=== PATIENT | male | born 1960 | race Caucasian/White ===

== ENCOUNTER 2025-01-08 11:51 | Emergency (ER) | payer OTHER, BC, SELFPAY ==
--- NOTE | ~2025-01-08 | CT_ITS ---
CT HEAD NON-CONTRAST CT C-SPINE Clinical History: fall with neck pain, h/o fusion Comparison: None Technique: Unenhanced axial images skull base to vertex. Coronal, sagittal reformats. Axial images thoracic inlet to skull base. Sagittal and coronal reformats. CT images acquired with automatic exposure control for dose reduction DLP: 605 mGy-cm Findings: Head: Sulci, ventricles: Unremarkable. No intracerebral hemorrhage. No evidence acute territorial infarct. No mass effect, midline shift, intra-/extra-axial fluid collection. Bony calvarium intact. Visualized paranasal sinuses: Clear. Mastoid air cells: Clear. C-spine: ACDF and fusion C3-7 No acute fracture or listhesis. Vertebral bodies normal height and alignment. Moderate degenerative changes. Prevertebral soft tissues within normal limits. Visualized lung apices: Clear. Visualized thyroid: Unremarkable. No enlarged cervical nodes. IMPRESSION: HEAD: 1. No acute intracranial findings. C-SPINE: 1. No acute fracture. Reviewed, dictated and finalized at location R. ER MERCHANDISER IMPRESSION: HEAD: 1. No acute intracranial findings. C-SPINE: 1. No acute fracture.
[2025-01-08 12:11] VITALS: BP 113/76; PULSE 73; RESP 14; TEMP 36.7; O2SAT 97
--- OUTSIDE RECORDS SUMMARY | 2025-01-08 13:39 | XMS_ITS | Clinical Summary ---
Author Organization [facility] Address [address] [place] [address] Care Team Providers Care Production Broacher Name Role Phone Sae Ocampo MD Primary Care Provider [phone] Allergies No known active allergies Medications Fluticasone Propionate (FLONASE NA) Active LORAZEPAM PO Active albuterol (ProAir HFA) 108 (90 Base) MCG/ACT inhalerIndication s:Mild intermittent asthma, unspecified whether complicated (CMD) Inhale 2 puffs into the lungs four times daily. 1 each 2 Active clopidogrel (PLAVIX) 75 MG tablet Take 75 mg by mouth daily. 1 Active irbesartan-hydroc hlorothiazide (AVALIDE) 150-12.5 MG per tablet Take 1 tablet by mouth daily. 1 Active dexmethylpheniDAT E (FOCALIN XR) 30 MG 24 hr capsule Take 30 mg by mouth every morning. 3 Active dexmethylphenidat e (FOCALIN) 10 MG tablet TAKE 1 TABLET (10 MG) BY ORAL ROUTE 2 TIMES PER DAY AT LEAST 4 HOURS APART FOR 30 DAYS 3 Active [place]-3 Fatty Acids (Fish Oil) 1200 MG CAPSULE DELAYED RELEASE Take by mouth every 12 hours. Active albuterol (ProAir HFA) 108 (90 Base) MCG/ACT inhaler every 6 hours. Activ e budesonide-formot michael (Symbicort) 160-4.5 MCG/ACT inhaler every 12 hours. Active rosuvastatin (CRESTOR) 20 MG tablet TAKE 1 TABLET BY MOUTH EVERY DAY FOR 90 DAYS 3 Active carvedilol (COREG CR) 20 MG 24 hr capsule daily. Active Cetirizine HCl (ZyrTEC Allergy) 10 MG Cap Active methylPREDNISolon e (MEDROL DOSEPAK) 4 MG tabletIndications :Acute recurrent pansinusitis follow package directions 1 packet 3 Active azelastine (ASTELIN) 0.1 % nasal sprayIndications: Acute recurrent pansinusitis [place] 1-2 sprays in each nostril 2 times daily as needed for Rhinitis. Use in each nostril as directed 1 each 3 Active Active Problems Problem Noted Date Diagnosed Date Asthma without status asthmaticus (CMD) 06/18/1906/17/2022 Overview (06/17/2022): Asthma, unspecified asthma severity, unspecified whether complicated, unspecified whether persistent Atherosclerosis of coronary artery without angin a pectoris 06/17/2022 06/17/2022 Overview (06/17/2022): Coronary artery disease involving [place] heart without angina pectoris, unspecified vessel or lesion type Essential hypertension 06/17/2022 3 Overview (06/17/2022): Hypertension, unspecified type Fatty liver 06/17/2022 06/17/2022 Mixed hyperlipidemia 06/17/2022 06/17/2022 Other chronic pain 06/17/2022 06/17/2022 Vitamin D deficiency 06/17/2022 06/17/2022 Immunizations Immunization Administration Dates Next Due Encephalitis Italian 02/25/2015,02/04/2015 Hep A, Unspecified formulation 4,06/29/2012,06/19/2012,2012 Hep B, adult 06/13/2013, 3,06/19/2012,2012 Hepatitis A - Adult 06/13/2013, 3,06/19/2012,2012 IPV 06/12/2012 Influenza, split virus, quad rivalent, PF 01/21/2019 Influenza, split virus, trivalent 02/04/2015 Influenza, split virus, trivalent, PF 02/04/2015 Influenza, unspecified formulation 01/30/2012 Italian Encephalitis SQ 02/25/2015,02/04/2015 MMR 01/25/2015 Tdap 08/24/2024,05/16/2016,06/12/2012 Surgical History Surgery Date Site/Laterality Comments CORONARY STENT PLACEMENT APPENDECTOMY SPINE SURGERY TONSILLECTOMY Medical History Medical History Date Comments Essential (primary) hypertension Hyperlipidemia ADD (attention deficit disorder) RAD (reactive airway disease) (CMD) Social History Tobacco Use Types Packs/Day Years Used Date Smoking Tobacco: Never Smokeless Tobacco: Never Tobacco Cessation:Counseling Given: Not Answered Inadequate Housing Answer Date Recorded Social Determinants: Housing (Overall Score Help er) 0 09/18/2018 Sex and Gender Information Value Date Recorded Sex Assigned at Not on file Legal Sex Male 2:18 PM CDT Gender Identity Not on file Sexual Orientation Not on file Obstetrics History Last Filed Vital Signs Vital Sign Reading Time Taken Comments Blood Pressure 131/76 08/24/2024 5:01 PM CDT Pulse 64 08/24/2024 5:01 PM CDT Temperature 36.8 C (98.2 F) 08/24/2024 3:03 PM CDT Respiratory Rate 17 08/24/2024 5:01 PM CDT Oxygen Saturation 95% 08/24/2024 5:01 PM CDT Inhaled Oxygen Concentration - - Weight 120 kg (264 lb 8.8 oz) 08/24/2024 3:02 PM CDT Height 185.4 cm (6' 1) 05/20/2022 2:34 PM CDT Body Mass Index 34.9 05/20/2022 2:34 PM CDT Plan of Treatment Health Maintenance Due Date Last Done Comments Depression Screening 1973 Pneumococcal Vaccine 50+ (1 of 2 - PCV) 1980 CT Colonography 2006 Cologuard 2006 Colonoscopy 2006 Colorectal Cancer Screening 2006 Fecal Occult Blood 2006 Sigmoidoscopy 2006 Respiratory Syncytial Virus (RSV) Vaccine 50+ (1 - Risk 50-74 years 1-dose series) 11/30/2011 Shingles Vaccine (1 of 2) 11/30/2011 Hepatitis C Screening 2012 Hepatitis B Vaccine (3 of 3 - 19+ 3-dose series) 08/08/2013 06/13/2013, 06/29/2012, 06/19/2012, Additional history exists COVID-19 Vaccine (2024- season) 2024 08/22/2020, 08/01/2020, 07/22/2020, Additional history exists Influenza Vaccine (#1) 2024 9, 02/04/2015, 02/04/2015, Additional history exists DTaP/Tdap/Td Vaccine (4 - Td or Tdap) 08/24/2034 08/24/2024, 05/16/2016, 06/12/2012 Hepatitis A Vaccine Aged Out 06/13/2013, 06/13/2013, 06/29/2012, Additional history exists No longer eligible based on patient's age to complete this topic Meningococcal Serogroup B Vaccine Aged Out No longer eligible based on patient's age to complete this topic Insurance [facility] UNKNOWN Care Teams Production Broacher Relationship Specialty Start Date End Date Sae Ocampo MD PCP - General 10/22/18
--- OUTSIDE RECORDS SUMMARY | 2025-01-08 13:39 | XMS_ITS | Clinical Summary ---
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
--- OUTSIDE RECORDS SUMMARY | 2025-01-08 13:39 | XMS_ITS | Clinical Summary ---
Author Organization [facility] Address [address] [facility], [address] [place] [address] Phone Care Team Providers Care International Accountant Name Role Phone Sae Ocampo MD Primary Care Provider [phone] Allergies No known active allergies Medications carvedilol CR (Coreg CR) 20 MG 24 hr capsule Take 20 mg by mouth in the morning. with food 3 Active clopidogrel (Plavix) 75 MG tablet 3 Active Jornay PM 100 MG capsule sustained-relea se 24 hr 3 Active rosuvastatin (Crestor) 20 MG tablet 3 Active irbesartan-hydr oCHLOROthiazide (Avalide) 150-12.5 MG tablet Take 1 tablet by mouth in the morning. 3 Active LORazepam (Ativan) 1 MG tablet Take 1 mg by mouth if needed at bedtime. 3 Active dexmethylphenid ate (Focalin) 10 MG tablet TAKE 1 TABLET (10 MG) BY ORAL ROUTE 2 TIMES PER DAY AT LEAST 4 HOURS APART FOR 30 DAYS 3 Active methylPREDNISol one (Medrol Dospak) 4 MG tabletsIndicati ons:Prepatellar bursitis of left knee Use as directed by package instructions 1 tablet 3 Active Additional Information Patient not taking.Reported on 09/06/2022 Active Problems Problem Noted Date Diagnosed Date Abrasion AND/OR friction burn of finger without infection 07/15/2022 Abrasion of right hand 07/15/2022 Abrasion of right index finger 07/15/2022 Abrasion of right middle finger 07/15/2022 Abrasion of right ring finger 07/15/2022 Degeneration of cervical intervertebral disc 09/2022 Displacement of cervical int ervertebral disc without myelopathy 07/15/2022 Asthma without status asthmaticus 06/17/2022 Overview (07/15/2022): Asthma, unspecified asthma severity, unspecified whether complicated, unspecified whether persistent Atherosclerosis of coronary artery without angin a pectoris 06/17/2022 Overview (07/15/2022): Coronary artery disease involving [place] heart without angina pectoris, unspecified vessel or lesion type Essential hypertension 06/17/2022 Overview (07/15/2022): Hypertension, unspecified type Fatty liver 06/17/2022 Mixed hyperlipidemia 06/17/2022 Vitamin D deficiency 06/17/2022 Other chronic pain 06/17/2022 Immunizations Immunization Administration Dates Next Due Hep A, Unspecified 06/13/2013, 3,06/19/2012,2012 Hep B, adult 06/13/2013, 3,06/19/2012,2012 IPV 06/12/2012 Influenza, High-dose Seasona l, Quadrivalent, Preservative Free 01/21/2019 Influenza, Unspecified 01/30/2012 Influenza, seasonal, injectable 02/04/2015 [place] Encephalitis IM 02/25/2015,02/04/2015 MMR 01/25/2015 Tdap 05/16/2016,06/12/2012 Family History Medical History Relation Name Comments Heart attack Father Heart disease Father Hyperlipidemia Father Hypertension Father Kidney disease Father Sleep apnea Father Stroke Father Relation Name Status Comments Father Social History Tobacco Use Types Packs/Day Years Used Date Smoking Tobacco: Never Smokeless Tobacco: Never Tobacco Cessation:Counseling Given: Not Answered Alcohol Use Standard Drinks/Week Comments Not Currently 0 (1 standard drink = 0.6 oz pur e alcohol) Sex and Gender Information Value Date Recorded Sex Assigned at Not on file Legal Sex Male 8:52 PM CDT Gender Identity Not on file Sexual Orientation Not on file Last Filed Vital Signs Vital Sign Reading Time Taken Comments Blood Pressure - - Pulse - - Temperature - - Respiratory Rate - - Oxygen Saturation - - Inhaled Oxygen Concentration - - Weight 109 kg (240 lb) 09/06/2022 4:35 PM CDT Height 185.4 cm (6' 1) 09/06/2022 4:35 PM CDT Body Mass Index 31.66 09/06/2022 4:35 PM CDT Plan of Treatment Health Maintenance Due Date Last Done Comments Influenza Vaccine (#1) 2024 02/04/2015, 2011 Insurance [facility] Care Teams International Accountant Relationship Specialty Start Date End Date Sae Ocampo MD [address] [place] [address] PCP - General Psychiatry 07/15/22
--- OUTSIDE RECORDS SUMMARY | 2025-01-08 13:39 | XMS_ITS | Clinical Summary ---
Author Organization [facility] Address [address] [place] [address] Care Team Providers Care Railroad Police Officer Name Role Phone Sae Ocampo MD Primary Care Provider [phone] Allergies No known active allergies Medications aspirin 325 MG tablet Take 325 mg by mouth daily. Active rosuvastatin (CRESTOR) 20 MG tablet Take 1 tablet by mouth. Active irbesartan-hydroc hlorothiazide (AVALIDE) 150-12.5 mg per tablet Take 1 tablet by mouth. 04/16/19 21 Active Jornay PM 100 mg CDES Take 1 capsule by mouth nightly. 07/15/19 23 Active budesonide-formot [place] (SYMBICORT) 160-4.5 mcg/actuation inhaler every 12 (twelve) hours. 01/01/20 23 Active LORazepam (ATIVAN) 1 MG tablet TAKE 1 AND 1/2 TABLETS AT BEDTIME Active orphenadrine (NORFLEX) 100 mg tabletIndications :Pain in right lumbar region of back,Spasm of muscle of lower back Take 1 tablet (100 mg total) by mouth 2 (two) times a day. 20 tablet 11/12/19 24 Active predniSONE (DELTASONE) 10 MG tabletIndications :Pain in right lumbar region of back,Lumbar back pain with radiculopathy affecting right lower extremity Take 4 tablets by mouth for 3 days, Take 3 tablets by mouth for 3 days, Take 2 tablet by mouth for 3 days, then 1 tablet daily for 3 days 30 tablet 11/12/19 24 Active carvedilol phosphate (Coreg CR) 20 MG 24 hr capsule Take one capsule with food daily. 90 capsule 1 08/01/19 25 Active clopidogreL (PLAVIX) 75 mg tablet TAKE 1 TABLET BY MOUTH EVERY DAY 90 tablet 12/20/19 25 Active clopidogreL (PLAVIX) 75 mg tablet Take 1 tablet (75 mg total) by mouth daily. 90 tablet 1 09/04/19 25 025 Discontinued Active Problems No known active problems Encounters Date Type Department Care Team Description 12/15/2024 Refill Cardiology [id number] [place] [address] Vadim Bolaños MD Medication Refill from Last 3 Months Immunizations Immunization Administration Dates Next Due Hepatitis A (HAVRIX/VAQTA) 06/13/2013,,06/19/2012,2012 Hepatitis B (ENGERIX-B/RECOMBIVAX) 06/13,06/29/2012,06/19/2012,2012 Influenza Split High Dose Quadrivalent (IM) PF (FLUZONE) 01/21/2019 Influenza Trivalent (IM) PF 02/04/2015 Influenza Trivalent w/Preser vative (IM) 02/04/2015 Influenza, Unspecified 01/30/2012 [place] Encephalitis 02/25/2015,02/04/2015 MMR 01/25/2015 POLIOVIRUS/IPV (POLIOVAX) 06/12/2012 [facility] SARS-COVID Vaccine Ag es 12+ (With Diluent) 07/12/2020 Tdap (ADACEL/BOOSTRIX) 05/16/2016,06/12/2012 Social History Tobacco Use Types Packs/Day Years Used Date Smoking Tobacco: Never Smokeless Tobacco: Never Tobacco Cessation:Counseling Given: Not Answered Interpersonal Safety Answer Date Record ed Do you feel physically or em otionally unsafe where you currently live? 2 11/12/2023 Is there someone in your lif e who physically hurts, threatens, humiliates, or scares you? 2 11/12/2023 Is anyone misusing your hitesh y, food, housing, and/or not allowing you to get medical treatment? 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 Gender Identity Not on file Sexual Orientation Not on file Last Filed Vital Signs Vital Sign Reading Time Taken Comments Blood Pressure 122/77 11/12/2023 11:45 AM CDT Pulse 72 11/12/2023 11:45 AM CDT Temperature 36.9 C (98.4 F) 11/12/2023 11:45 AM CDT Respiratory Rate 18 11/12/2023 11:45 AM CDT Oxygen Saturation 98% 11/12/2023 11:45 AM CDT Inhaled Oxygen Concentration - - Weight 113 kg (250 lb) 11/12/2023 11:45 AM CDT Height 185.4 cm (6' 1) 11/12/2023 11:45 AM CDT Body Mass Index 32.98 11/12/2023 11:45 AM CDT Plan of Treatment Health Maintenance Due Date Last Done Comments Annual Wellness Exam with PCP (Rolling Yr) 1961 CT Colonography 1961 Colonoscopy 1961 Colorectal Cancer Screening 1961 FIT / gFOBT Colorectal Cancer Screening 1961 FIT-DNA (Cologuard) 1961 Flexible Sigmoidoscopy 1961 Hepatitis C Screening 11/30/1979 Pneumococcal Vaccine: 50+ Years (1 of 2 - PCV) 1980 Zoster Vaccine (Shingles) (1 of 2) 11/30/2011 Hepatitis B Vaccines (3 of 3 - Risk 3-dose series) 08/08/2013 06/13/2013, 06/29/2012, 06/19/2012, Additional history exists Influenza Vaccine (#1) 2024 9, 02/04/2015, 02/04/2015, Additional history exists COVID-19 Vaccine ( - 2024- season) 2024 08/22/2020, 08/01/2020, 07/12/2020 DTaP,Tdap,and Td Vaccines (4 - Td or Tdap) 08/24/2034 08/24/2024, 05/16/2016, 06/12/2012 Hepatitis A Vaccines Completed 06/13/2013, 06/29/2012, 06/19/2012, Additional history exists Meningococcal Vaccine Aged Out No joceline chris eligible based on patient's age to complete this topic Care Teams Railroad Police Officer Relationship Specialty Start Date End Date Sae Ocampo MD [address] [place] [id number] PCP - General 01/09/21
--- OUTSIDE RECORDS SUMMARY | 2025-01-08 13:39 | XMS_ITS | Encounter Summary ---
Author Organization [facility] Address [address] 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 M CHEESE MAKER documented in this encounter Plan of Treatment Not on file documented as of this encounter Visit Diagnoses Not on filedocumented in this encounter Additional Health Concerns Assessment Noted Time A fall risk assessment has been complete d for the patient 11/12/2023 11:41 AM CDT A Body Mass Index follow-up plan has been documented for the patient 11/12/2023 12:10 PM CDT documented as of this encounter Care Teams Health Administration Teacher Relationship Specialty Start Date End Date Sae Ocampo MD [address] [place] [id number] PCP - General 01/09/21 documented as of this encounter
--- OUTSIDE RECORDS SUMMARY | 2025-01-08 13:39 | XMS_ITS | Encounter Summary ---
Author Organization [facility] Address [address] [place] [address] Care Team Providers Care Labor Mediator Name Role Phone Sae Ocampo MD Primary Care Provider Encounter Details Date Type Department Care Team (Late st Contact Info) Description 08/04/2021 E-Advice [facility], [place] [address] [facility] [address] [place] [address] Ifeanyi Guardado PA-C [address] [facility] [address] [place] [address] Return to Work Letter Social History Tobacco Use Types Packs/Day Years Used Date Smoking Tobacco: Never Smokeless Tobacco: Never Inadequate Housing Answer Date Recorded Social Determinants: Housing (Overall Score Help er) 0 09/18/2018 Sex and Gender Information Value Date Recorded Sex Assigned at Not on file Legal Sex Male 2:18 PM CDT Gender Identity Not on file Sexual Orientation Not on file documented as of this encounter Plan of Treatment Not on file documented as of this encounter Visit Diagnoses Not on filedocumented in this encounter Care Teams Labor Mediator Relationship Specialty Start Date End Date Sae Ocampo MD PCP - General 10/22/18 documented as of this encounter
[2025-01-08 13:40] VITALS: BP 120/68; PULSE 80; RESP 14; TEMP 36.6; O2SAT 99
--- NOTE | 2025-01-08 16:34 | ED.FALL ---
HPI - Fall General Chief Complaint: Fall Stated Complaint: fall on ice at 0600 today Time Seen by Provider: 01/08/25 12:21 History of Present Illness HPI Narrative: Patient has history cervical fusion, he is here for work and slipped on ice, and fell back, did not hit his head but he does have pain to his neck, he thinks he may be from whiplash. Is on blood thinners. No focal numbness or weakness, ambulating without issues. Related Data Allergies Allergy/AdvReac Type Severity Reaction Status Date / Time No Known Allergies Allergy Verified 01/08/25 12:14 Review of Systems Review of Systems: All systems reviewed & are unremarkable except as noted in HPI and below Exam Narrative: EXAMINATION OF ORGAN SYSTEMS/BODY AREAS: Constitutional: Vital signs per nursing GENERAL:[No acute distress, non-toxic appearing.] HEAD: Normal with no signs of head trauma. EYES: EOMI, conjunctiva normal ENT: Hearing grossly intact NECK: Some slight tenderness to the right-sided neck LUNGS: Nonlabored breathing. HEART: [Regular rate and rhythm] ABD: [Soft], [nontender to palpation] EXT: Normal range of motion, no midline tenderness down back SKIN: [No rashes or lesions.] NEURO: [Alert. No gross focal sensory or strength deficits.] PSYCH: Normal affect Course Vital Signs Vital signs: Vital Signs Temperature 98.1 F 01/08/25 12:11 Pulse Rate 73 01/08/25 12:11 Respiratory Rate 14 01/08/25 12:11 Blood Pressure 113/76 01/08/25 12:11 Pulse Oximetry 97 01/08/25 12:11 Oxygen Delivery Room Air 01/08/25 12:11 Temperature 98 F 01/08/25 13:40 Pulse Rate 80 01/08/25 13:40 Respiratory Rate 14 01/08/25 13:40 Blood Pressure 120/68 01/08/25 13:40 Pulse Oximetry 99 01/08/25 13:40 Oxygen Delivery Room Air 01/08/25 12:11 [facility] Narrative Medical decision making narrative: Patient presents here after slipping on ice and falling, with pain to his neck. He does not think he hit his head. He is on blood thinners. CT head and C-spine obtained here within acceptable limits, he is stable for discharge with follow-up to his doctor, prescriptions for pain medicine as needed Differential Diagnosis Differential Diagnosis: Fracture, sprain, whiplash, intracranial hemorrhage Imaging Data Radiologist's impression: ITS Impressions Cervical Spine CT 01/08/25 13:12 IMPRESSION: HEAD: 1. No acute intracranial findings. C-SPINE: 1. No acute fracture. Head CT 01/08/25 13:12 IMPRESSION: HEAD: 1. No acute intracranial findings. C-SPINE: 1. No acute fracture. Discharge Plan Discharge Clinical Impression: Fall, Neck pain Patient Disposition: Home Condition: Stable Instructions: Cervical Strain (DC) Additional Instructions: Your CT scan thankfully did not show any abnormality. You can follow-up with your regular doctor, take Tylenol as needed for pain, and come back for any further issues. Patient Language: Spanish Prescriptions: New acetaminophen [Tylenol Extra Strength] 500 mg tablet 1,000 mg PO Q6H PRN (Reason: pain) Qty: 50 0RF lidocaine 5 % adhesive patch,medicated 1 patch topical DAILY Qty: 15 0RF Rx Instructions: leave on most painful area for up to 12 hrs methocarbamol 750 mg tablet 750 mg PO TID PRN (Reason: muscle spasm) Qty: 30 0RF Follow-up/Referrals: PHYSICIAN NOT ON STAFF,NONSTAFF [Primary Care Provider]
== END 2025-01-08 13:41 | disposition home or self-care (01) ==
PROVIDERS: Emergency Provider Emergency Medicine
DX: S19.9XXA Unspecified injury of neck, initial encounter (principal); Z98.1 Arthrodesis status; Z79.01 Long term (current) use of anticoagulants; W00.0XXA Fall on same level due to ice and snow, initial encounter
CPT/HCPCS: 70450; 72125; 99284; L0140